=== PATIENT | female | born 1970 | race Caucasian/White ===

== ENCOUNTER 2024-04-29 13:39 | Outpatient (CLI) | payer MEDICARE, MEDICAID ==
[2024-04-29] MEDS ORDERED: Magnevist 469MG/ML 20 ML VIAL ONE (15:22)
== END 2024-04-29 13:40 | disposition home or self-care (01) ==
LOC: CSHCT 13:39
PROVIDERS: ATTEND Radiology Radiation Oncology
DX: C79.31 Secondary malignant neoplasm of brain (principal)
CPT/HCPCS: 70553; 76376